=== PATIENT | male | born 1970 | race Caucasian/White ===

== ENCOUNTER 2021-12-30 13:08 | Emergency (ER) | payer OTHER, SELFPAY ==
[2021-12-30 13:09] VITALS: BP 121/77; PULSE 71; RESP 16; TEMP 36.4; O2SAT 100; BMI 25.0
[2021-12-30 13:11] VITALS: BP 121/77; PULSE 71; RESP 16; TEMP 36.4; O2SAT 100
--- NOTE | 2021-12-30 13:24 | CT_ITS ---
STUDY: CT SCAN UPPER EXTREMITY RIGHT wrist. REASON FOR EXAM: Male, 51 years old. Right wrist abscess RADIATION DOSAGE (If Supplied By Facility): CTDIvol = ( 24.58 ) mGy, DLP = ( 665.09 ) mGycm. Individualized dose optimization techniques were used for this CT.? TECHNIQUE: Multiple axial tomographic images of the wrist were obtained following 100 mL of ISOVUE 300 IV injection. Coronal and sagittal reconstruction was obtained as well. COMPARISON: None. FINDINGS: Diffuse subcutaneous edema with diffuse overlying skin thickening involving the region of the distal and mid forearm extending into the wrist joint. This is worse on the ventral radial aspect of the joint. There is a focal area of induration suggestive of a phlegmon measuring 1.9 cm x 1.4 cm along the radial aspect of the wrist joint. No abscess is seen at this time. No bony deformity or abnormality is seen. CT/Extremity Upper WITH Contrast IMPRESSION: Diffuse subcutaneous edematous changes with skin thickening involving the mid and distal forearm extending into the wrist joint. This is worse along the medial ventral aspect of the wrist joint with focal phlegmon. No evidence of abscess formation at this time. Electronically Signed: Julio Cesar Mcgarry MD at 14:21 EDT ,
--- NOTE | 2021-12-30 13:26 | EX.ED.DYSGE1 ---
HPI History of Present Illness Chief Complaint: Wound Informant: patient Onset/Context/Timing Onset: Days (6 days) Context: Gradual Onset Current Severity: Moderate Maximum Severity: Moderate Narrative Narrative: Patient presents secondary to abscess on the right wrist. He states he noted what he thought was poison glenny on his right wrist 6 days ago. He scratched the area open. He was seen at urgent care 2 days ago. He was diagnosed with cellulitis/abscess. It was not I&D at that time but he was given an IM injection of ceftriaxone and started on p.o. Bactrim. He went back today for a wound check. The physician highwall drill operator at the clinic today attempted to perform an I&D but did not get much fluid out. She voiced concern about it being close to the radial artery and did not want to cause further damage to send him to the emergency room. He denies having fever or chills. He is right-hand dominant. PFSH PFSH Medical History no medical history no medical history Home Medications azithromycin 250 mg tablet See Rx Instructions PO .COMPLEX #6 tabs 04/25/19 [Rx Last Taken Unknown] benzonatate 100 mg capsule 200 mg PO TID PRN cough #30 caps 04/25/19 [Rx Last Taken Unknown] cephalexin 500 mg capsule 500 mg PO Q6 #40 caps 12/30/21 [Rx Last Taken Unknown] Allergy/AdvReac Type Severity Reaction Status Date / Time No Known Allergies Allergy Unverified 04/29/19 13:52 Social History Smoking Status: Never smoker alcohol intake: current Alcohol type: beer ROS ROS ED Constitutional Constitutional ED: Denies chills or fever(s) Eyes Eyes: Denies change in vision or discharge from eye(s) ENT ENT ED: Denies discharge from eye(s), rhinorrhea or sore throat Cardiovascular Cardiovascular: Denies chest pain or palpitations Respiratory/Chest Respiratory/Chest: Denies cough or dyspnea Gastrointestinal Gastrointestinal: Denies abdominal pain, diarrhea, nausea or vomiting Genitourinary Genitourinary ED: Denies difficulty urinating or dysuria Musculoskeletal Musculoskeletal: Denies back pain or extremity pain Integumentary Reports abscess and other Details: Right hand edema ; Denies Abrasions or rash Neurologic Neurologic: Denies headache(s) or weakness Psychiatric Psychiatric: Denies anxiety or depression Allergic/Immunologic Allergic/Immunologic ED: Denies lip swelling or urticaria EXAM Physical Exam Narrative Exam Narrative: Patient sitting up in bed no acute distress. He is nontoxic-appearing. He denies pain. Const Vital Signs: 12/30/21 13:09 12/30/21 13:11 Temperature 97.6 F L 97.6 F L Temperature Source Temporal Temporal Pulse Rate 71 71 Respiratory Rate 16 16 Blood Pressure 121/77 H 121/77 H Blood Pressure Mean 91 91 Pulse Ox 100 100 Oxygen Delivery Method Room Air Room Air Positive well nourished and well developed General Appearance ED: well developed HEENT Reports moist mucous membranes Eyes PERRL Neck no lymphadenopathy Chest Wall inspection of chest normal and palpation of chest normal Resp normal respiratory effort and clear to auscultation bilaterally Cardio regular rate and regular rhythm GI normal to inspection, nondistended, normoactive bowel sounds and non-tender Palpation: soft Extremity Extremity Narrative: Swollen erythematous area to the volar lateral area of the right wrist. No fluctuance noted at this time. Mild hand edema noted. Good range of motion of all digits. Neuro oriented x3 and no sensory deficits noted Motor Exam: strength 5/5 throughout MDM MDM MDM Narrative Medical decision making narrative: Lab work obtained along with blood cultures. CT scan of the wrist obtained. Lab Data Attestation: I reviewed the patient's lab results. Labs: Laboratory Results - last 24 hr 12/30/21 12/30/21 13:40 13:40 WBC 8.5 RBC 4.41 L Hgb 13.9 Hct 41.4 MCV 93.9 MCH 31.5 MCHC 33.6 RDW Std Deviation 43.1 RDW Coeff of Little 12.4 Plt Count 210 MPV 9.2 Immature Gran % (Auto) 0.100 Neut % (Auto) 70.7 H Lymph % (Auto) 19.1 [place] % (Auto) 7.2 Eos % (Auto) 2.7 Baso % (Auto) 0.2 Absolute Neuts (auto) 6.0 Absolute Lymphs (auto) 1.61 Nucleated RBC % 0 Sodium 140 Potassium 4.0 Chloride 105 Carbon Dioxide 28.0 Anion Gap 7 BUN 18 Creatinine 1.11 Estim Creat Clear Calc 86.42 Est GFR (MDRD) Af Amer 90 Est GFR (MDRD) Non-Af 74 BUN/Creatinine Ratio 16.2 Glucose 94 Calcium 8.7 Radiography Diagnostic Testing: Clinical Impression(s) from Imaging Studies Upper Extremity CT 12/30/21 13:24 IMPRESSION: Diffuse subcutaneous edematous changes with skin thickening involving the mid and distal forearm extending into the wrist joint. This is worse along the medial ventral aspect of the wrist joint with focal phlegmon. No evidence of abscess formation at this time. Electronically Signed: Julio Cesar Mcgarry MD at 14:21 EDT , Treatment and Re-Evaluation Narrative: Lab work reveals normal white count with no left shift. Chemistry studies unremarkable. CT scan reveals subcu edematous changes with skin thickening but no evidence of a abscess. At this time patient has been on p.o. Bactrim at home. I will add Keflex. Wound to be cleansed and dressed. We discussed appropriate elevation of the hand to help prevent swelling. Return instructions provided. Discharge Plan Triage Chief Complaint: Wound ED Provider: Dina Andrade Dx/Rx/DC Orders Clinical Impression: Cellulitis Instructions: ED Cellulitis Prescriptions: New cephalexin 500 mg capsule 500 mg PO Q6 Qty: 40 0RF No Action azithromycin 250 mg tablet See Rx Instructions PO .COMPLEX Qty: 6 0RF Rx Instructions: take 500 mg today (day 1), then 250 mg for 4 days (days 2-5) PO benzonatate 100 mg capsule 200 mg PO TID PRN (Reason: cough) Qty: 30 0RF Primary Care Provider: Lincoln Lewis Referrals: Lincoln Lewis MD [Primary Care Provider] - 1 Week Disposition Disposition: Home, Self Care
[2021-12-30] MEDS: 0.9% Normal Saline 1,000 ML 150 ML IV (13:46)
[2021-12-30 14:01] LABS: Absolute Lymphocyte Count 1.61 X10^3/uL (0.83-4.51); Basophil# 0.02 X10^3/uL; Basophil% 0.2 % (0-1); Eosinophil# 0.23 X10^3/uL; Eosinophils% 2.7 % (0-5); Hematocrit 41.4 % (40-54); Hemoglobin 13.9 g/dL (13.0-16.5); Lymphocyte # 1.61 X10^3/ul (0.83-4.51); Lymphocyte % 19.1 % (19-41); Mean Corp Hgb Conc 33.6 g/dL (32-36); Mean Corpuscular Hgb 31.5 pg (27.0-32.0); Mean Corpuscular Volume 93.9 fL (80-94); Mean Platelet Vol. 9.2 fl (6.2-12.0); Monocyte# 0.61 X10^3/uL; Monocyte% 7.2 % (0-10); NRBC Flagged by Analyzer 0 % (0-5); Neutrophil # 5.97 X10^3/uL (2.7-7.7); Neutrophil % 70.7 % (47-70); Platelet Count 210 K/mm3 (150-450); RBC Distribution Width CV 12.4 % (11.6-14.6); RBC Distribution Width SD 43.1 fl (35.1-43.9); Red Blood Count 4.41 M/mm3 (4.6-6.2); White Blood Count 8.5 K/mm3 (4.4-11.0)
[2021-12-30 14:02] LABS: Anion Gap 7 (5-15); BUN 18 mg/dL (7-18); BUN/Creat Ratio 16.2 RATIO (10-20); Calcium,Total 8.7 mg/dL (8.5-10.1); Chloride 105 mmol/L (98-107); Creatinine, Serum 1.11 mg/dL (0.70-1.30); EST Glomerular Filtration Rate 74 mL/min (>60); Est Glom Filt Rate - Afr Amer 90 mL/min (>60); Estimated Creatinine Clearance 86.42 ml/min; Glucose 94 mg/dL (74-106); Sodium Level 140 mmol/L (136-145)
== END 2021-12-30 14:58 | disposition home or self-care (01) ==
PROVIDERS: Emergency Provider Emergency Medicine; PCP Family Medicine; Visit Provider Emergency Medicine
DX: L03.113 Cellulitis of right upper limb (principal)
CPT/HCPCS: 36415; 73201; 80048; 85025; 87040; 99283; J7030; Q9967; A4216

== ENCOUNTER 2021-12-31 10:37 | Emergency (ER) | payer OTHER, SELFPAY ==
[2021-12-31 10:38] VITALS: BP 135/93; PULSE 78; RESP 16; TEMP 36.4; O2SAT 100; BMI 25.0
--- NOTE | 2021-12-31 11:05 | EX.ED.DYSGE1 ---
HPI <SEN Serrato - Last Filed: 12/31/21 14:52> History of Present Illness Chief Complaint: Cellulitis Narrative Narrative: Patient has had cellulitis of his right wrist x1 week. Urgent care done I&D and then he was seen in the ED yesterday with normal labs and CT showing cellulitis but no abscess. He had been on Bactrim and last night they added Keflex every 6 hours. Today he woke up and his left knee was red and warm similar to his wrist. He states he has full range of motion and it itches but is not painful. No fever chills nausea or vomiting. He has no history of diabetes or immunocompromised. PFSH <SEN Serarto Last Filed: 12/31/21 14:52> [facility] Home Medications cephalexin 500 mg capsule 500 mg PO Q6 #40 caps 12/30/21 [Rx Last Taken Unknown] prednisone 10 mg tablet 10 mg PO DAILY #65 TABLETS 12/31/21 [Rx Last Taken Unknown] sulfamethoxazole 800 mg-trimethoprim 160 mg tablet 1 tab PO BID 12/31/21 [History Last Taken Unknown] Allergy/AdvReac Type Severity Reaction Status Date / Time No Known Allergies Allergy Unverified 12/31/21 10:39 Social History Smoking Status: Never smoker alcohol intake: current Alcohol type: beer ROS <SEN Serrato - Last Filed: 12/31/21 14:52> ROS ED ROS Narrative Constitutional: Negative for fever, chills, malaise. Eyes: Negative for visual change. ENT: Negative for sore throat, ear pain, rhinorrhea. CVS: Negative for palpitations, chest pain, syncope. Respiratory: Negative for shortness of breath, cough, orthopnea. GI: Negative for abdominal pain, nausea, vomiting, diarrhea, constipation, melena, hematochezia. : Negative for dysuria, hematuria or frequency. Neuro: Negative for headache, motor/sensory dysfunction. Skin: Positive for rash. Musc: Negative for joint pain, swelling, trauma. Heme: Negative for easy bruising, bleeding, lymphadenopathy. EXAM <SEN Serrato Last Filed: 12/31/21 14:52> Physical Exam Narrative Exam Narrative: CONST: Patient sitting in no acute distress. EYES: Normal inspection. NECK: Normal inspection. RESP: No respiratory distress, CTAB. CVS: Regular rate and rhythm, no murmur, no gallop. SKIN: 15x12 cm area of erythema over left anterior knee with small scattered vesicles. No significant warmth, no lymphangitic streaking, no fluctuance or crepitus. EXTREMITIES: No swelling of lower extremities, full range of motion of left knee without pain, 2+ PT pulses. NEURO: Oriented x4. PSYCH: Normal affect. Const Vital Signs: 12/31/21 10:38 Temperature 97.5 F L Temperature Source Temporal Pulse Rate 78 Respiratory Rate 16 Blood Pressure 135/93 H Blood Pressure Mean 107 Pulse Ox 100 Oxygen Delivery Method Room Air <Dr. Manish Maravilla DO - Last Filed: 12/31/21 15:28> Physical Exam Const Vital Signs: 12/31/21 10:38 Temperature 97.5 F L Temperature Source Temporal Pulse Rate 78 Respiratory Rate 16 Blood Pressure 135/93 H Blood Pressure Mean 107 Pulse Ox 100 Oxygen Delivery Method Room Air MDM <SEN Serrato - Last Filed: 12/31/21 14:52> [facility] Narrative Medical decision making narrative: Patient has been treated for cellulitis on his right wrist and today presents with new redness of his left knee. He is on antibiotics. He appears well nontoxic. Vital signs within normal limits. There is an area of erythema over the left patella and there are scattered vesicles to help. Is not warm or tender. He has full range of motion without pain. Distal pulses intact. The right wrist has a similar area except its more focally swollen from the I&D that urgent care did. With the vesicles it looks more like a plant contact dermatitis plan a cellulitis. Repeat labs today show normal white count. 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 I do not think it cellulitis on the knee. He was given a 3-week prednisone taper and was discharged in stable condition. Diagnosis 1. Plant contact dermatitis, right wrist and left knee Lab Data Labs: Laboratory Results - last 24 hr 12/31/21 12/31/21 11:20 11:20 WBC 6.2 RBC 4.23 L Hgb 13.3 Hct 40.2 MCV 95.0 H MCH 31.4 MCHC 33.1 RDW Std Deviation 43.4 RDW Coeff of Little 12.5 Plt Count 207 MPV 9.0 Immature Gran % (Auto) 0.200 Neut % (Auto) 64.9 Lymph % (Auto) 23.8 Price % (Auto) 7.1 Eos % (Auto) 3.7 Baso % (Auto) 0.3 Absolute Neuts (auto) 4.0 Absolute Lymphs (auto) 1.47 Nucleated RBC % 0 Sodium 138 Potassium 5.1 Chloride 106 Carbon Dioxide 30.0 Anion Gap 2 L BUN 16 Creatinine 1.23 Estim Creat Clear Calc 77.99 Est GFR (MDRD) Af Amer 80 Est GFR (MDRD) Non-Af 66 BUN/Creatinine Ratio 13.0 Glucose 91 Calcium 8.8 <Dr. Manish Maravilla, DO - Last Filed: 12/31/21 15:28> MDM MDM Narrative Medical decision making narrative: This patient was seen with a PA/SCHEDULING ASSISTANT Individually assessed they patient including history and physical. I have reviewed everything on the chart that is available and agree with the documentation provided by the PA/SCHEDULING ASSISTANT including discussion about the assessment, treatment plan, discussion, and return precautions. Patient has been treated for cellulitis on his right wrist and today presents with new redness of his left knee. He is on antibiotics. He appears well nontoxic. Vital signs within normal limits. There is an area of erythema over the left patella and there are scattered vesicles to help. Is not warm or tender. He has full range of motion without pain. Distal pulses intact. The right wrist has a similar area except its more focally swollen from the I&D that urgent care did. With the vesicles it looks more like a plant contact dermatitis plan a cellulitis. Repeat labs today show normal white count. 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 I do not think it cellulitis on the knee. He was given a 3-week prednisone taper and was discharged in stable condition. Diagnosis 1. Plant contact dermatitis, right wrist and left knee Lab Data Attestation: I reviewed the patient's lab results. Labs: Laboratory Results - last 24 hr 12/31/21 12/31/21 11:20 11:20 WBC 6.2 RBC 4.23 L Hgb 13.3 Hct 40.2 MCV 95.0 H MCH 31.4 MCHC 33.1 RDW Std Deviation 43.4 RDW Coeff of Little 12.5 Plt Count 207 MPV 9.0 Immature Gran % (Auto) 0.200 Neut % (Auto) 64.9 Lymph % (Auto) 23.8 Price % (Auto) 7.1 Eos % (Auto) 3.7 Baso % (Auto) 0.3 Absolute Neuts (auto) 4.0 Absolute Lymphs (auto) 1.47 Nucleated RBC % 0 Sodium 138 Potassium 5.1 Chloride 106 Carbon Dioxide 30.0 Anion Gap 2 L BUN 16 Creatinine 1.23 Estim Creat Clear Calc 77.99 Est GFR (MDRD) Af Amer 80 Est GFR (MDRD) Non-Af 66 BUN/Creatinine Ratio 13.0 Glucose 91 Calcium 8.8 Discharge Plan Triage Chief Complaint: Cellulitis ED Midlevel Provider: Uinque Soni ED Provider: Manish Maravilla Dx/Rx/DC Orders Clinical Impression: Allergy to poison marisol Instructions: ED Poison Marisol Rash Prescriptions: New prednisone 10 mg tablet 10 mg PO DAILY Qty: 65 0RF Rx Instructions: 6 po qd x 5 days, 4 po qd x 5 days, 2 po qd x 5 days, 1 po qd x 5 days No Action cephalexin 500 mg capsule 500 mg PO Q6 Qty: 40 0RF sulfamethoxazole-trimethoprim 800-160 mg tablet 1 tab PO BID Label Comments: TAKE 1 TABLET BY MOUTH TWICE DAILY for TEN days. Primary Care Provider: Lincoln Lewis Referrals: Lincoln Lewis MD [Primary Care Provider] - Activity Restrictions/Additional Instructions: There are tiny vesicles on red areas so this looks more consistent with poison marisol or plant dermatitis. I prescribed 3 weeks of steroids which should help. He can also take Benadryl if it itches. Try not to scratch it because it can become infected. Disposition Disposition: Home, Self Care Discharge Date/Time: 12/31/21 12:25
[2021-12-31 11:27] LABS: Absolute Lymphocyte Count 1.47 X10^3/uL (0.83-4.51); Basophil# 0.02 X10^3/uL; Basophil% 0.3 % (0-1); Eosinophil# 0.23 X10^3/uL; Eosinophils% 3.7 % (0-5); Hematocrit 40.2 % (40-54); Hemoglobin 13.3 g/dL (13.0-16.5); Lymphocyte # 1.47 X10^3/ul (0.83-4.51); Lymphocyte % 23.8 % (19-41); Mean Corp Hgb Conc 33.1 g/dL (32-36); Mean Corpuscular Hgb 31.4 pg (27.0-32.0); Monocyte# 0.44 X10^3/uL; Monocyte% 7.1 % (0-10); NRBC Flagged by Analyzer 0 % (0-5); Neutrophil % 64.9 % (47-70); Platelet Count 207 K/mm3 (150-450); RBC Distribution Width CV 12.5 % (11.6-14.6); RBC Distribution Width SD 43.4 fl (35.1-43.9); Red Blood Count 4.23 M/mm3 (4.6-6.2); White Blood Count 6.2 K/mm3 (4.4-11.0)
[2021-12-31 11:40] LABS: Anion Gap 2 (5-15); BUN 16 mg/dL (7-18); Calcium,Total 8.8 mg/dL (8.5-10.1); Chloride 106 mmol/L (98-107); Creatinine, Serum 1.23 mg/dL (0.70-1.30); EST Glomerular Filtration Rate 66 mL/min (>60); Est Glom Filt Rate - Afr Amer 80 mL/min (>60); Estimated Creatinine Clearance 77.99 ml/min; Glucose 91 mg/dL (74-106); Potassium 5.1 mmol/L (3.5-5.1); Sodium Level 138 mmol/L (136-145)
== END 2021-12-31 12:25 | disposition home or self-care (01) ==
LOC: ED 12:24
PROVIDERS: Physician Assistant; Emergency Provider Student in an Organized Health Care Education/Training Program; PCP Family Medicine; Visit Provider Student in an Organized Health Care Education/Training Program
DX: L23.7 Allergic contact dermatitis due to plants, except food (principal); L03.113 Cellulitis of right upper limb; Z79.899 Other long term (current) drug therapy
CPT/HCPCS: 36415; 80048; 85025; 99283; A4216

== ENCOUNTER 2022-09-06 06:22 | Day surgery (SDC) | payer OTHER, SELFPAY ==
[2022-09-06] VITALS (7 sets, daily range): BP systolic 104–125; BP diastolic 74–83; PULSE 70–80; RESP 14–16; TEMP 36.2–36.7; O2SAT 97–100; BMI 25.9
--- NOTE | 2022-09-06 06:25 | HP.PCM_ITS ---
HPI - General HPI Narrative CHARBEL ISAAC, is a 52 M who presents for screening colonoscopy. Patient never had previous colonoscopy. Patient denies any family history of colon cancer. Patient has bowel movements daily denies any blood. Patient denies any chronic abdominal pain/nausea/vomiting/reflux. [facility] Medical History (Updated 09/04/22 @ 09:15 by Elsie Chen) Heartburn Non-smoker Psoriasis Wears glasses Home Medications apremilast 30 mg tablet (Otezla) 30 mg PO 1200 07/25/22 [History Last Taken Unknown] Allergy/AdvReac Type Severity Reaction Status Date / Time No Known Allergies Allergy Verified 09/06/22 06:40 Surgical History (Updated 09/04/22 @ 09:15 by Elsie Chen) History of root canal procedure Social History (Updated 07/25/22 @ 11:31 by Bethany Navarrete) household members: spouse Smoking Status: Never smoker alcohol intake: current Alcohol type: beer Past Medical/Surgical History Planned Operation Planned Operative Procedure/s: CSCOPE OA Previous Hospitalizations/Surgeries HX Hospitalizations: No Any Problems With Anesthesia: No You/Your Family Experience Fever (Hyperthermia) With Anes: No Cholinesterase deficiency: No Cardiovascular Hx Hypertension: No Respiratory Hx Sleep Apnea: No Hx Respiratory Tract Infection/Cold (presently): No Do You Snore Loudly (louder than talking or can be heard): Yes Do You Often Feel Tired/ Fatigued/ Sleepy Dring Daytime?: No Has Anyone Observed You Stop Breathing During Sleep?: No Result (for STOP score): Negative Smoking Status: Never smoker Neurological Does patient have nerve stimulator: No Reproduction : No Allergies No Known Allergies Allergy (Verified 09/06/22 06:40) Discharge Is Pt Admitted From a Shelter, or a [place] [facility]: No After D/C, Where Do you Plan to Go: Return Home Physical Exam Const alert, oriented x3 and no apparent distress HEENT normocephalic and head/scalp atraumatic Resp normal respiratory effort Cardio regular rate GI soft to palpation and non-tender; Negative for non-distended Palpation: Negative for guarding Extremity no clubbing, cyanosis or edema Neuro CN's II-XII intact bilaterally Psych mental status grossly normal Assessment & Plan Assessment/Plan (1) Encounter for screening for malignant neoplasm of colon: Surgery Risks - Colonoscopy Risks Include but are not Limited To: Risks include but are not limited to: Bleeding, perforation requiring further surgery, inability to complete colonoscopy requiring barium enema.
[2022-09-06] MEDS: Lactated Ringers 1,000 ML 15 ML IV (06:52)
--- NOTE | 2022-09-06 07:30 | COLBX_PTH ---
PATIENT: CHARBEL ISAAC LOC: EN U#:[id number] AGE/SX: 52/M ROOM: RE09/06/[address]: Dr. Carolyn Edwards MD : 1970 BED: DIS: 09/06/2022 SPEC #: [id number] RECD: 09/06/22 13:41 STATUS: SAGE REFelix #: [id number] FARA: 09/06/22 07:[address]: Carolyn Edwards DEPT: SURGICAL PATHOLOGY RECD BY: Tanya Sanchez ENTERED: 09/06/22 13:42 SP TYPE: COLON BX OTHR DR: Dr. Wm Lewis MD Tissues: Sigmoid colon biopsy Procedures: Surgery Specimen Level IV HEADER OPERATION: Colonoscopy ? open access (MAC) and polypectomy PRE-OP DIAGNOSIS: Screening TISSUE SUBMITTED: Sigmoid colon polyp MICROSCOPIC DIAGNOSIS Sigmoid colon polyp, biopsy: Fragments of benign colonic mucosa. See comment. AM:alma rosa 09/07/2022 COMMENT Neither hyperplastic nor adenomatous change is identified. Clinical correlation is suggested. MICROSCOPIC DESCRIPTION Slides are reviewed. GROSS DESCRIPTION Received in fixative is one container labeled with the patient's name and designated sigmoid colon polyp. The specimen consists of one irregular fragment of light zepeda soft tissue that measures 0.4 x 0.4 x 0.1 cm. The specimen is totally submitted in one cassette. / SJ:alma rosa 09/06/2022 TC:5 CPT: 11333
--- NOTE | 2022-09-06 08:21 | OP.COLON_ITS ---
Patient Name: Zeferino Dubose Procedure Date: 09/06/2022 7:12 AM Date of : 1970 Age: 52 Procedure: Colonoscopy Indications: Screening for colorectal malignant neoplasm Providers: Carolyn Edwards MD Referring MD: Carolyn Edwards MD Medicines: Monitored Anesthesia Care Patient Profile: This is a 52 year old male. Last Colonoscopy: none. The patient's first colonoscopy is today. Complications: No immediate complications. Procedure: Pre-Anesthesia Assessment: - Prior to the procedure, a History and Physical was performed, and patient medications and allergies were reviewed. The patient's tolerance of previous anesthesia was also reviewed. The risks and benefits of the procedure and the sedation options and risks were discussed with the patient. All questions were answered, and informed consent was obtained. Prior Anticoagulants: The patient has taken no previous anticoagulant or antiplatelet agents. ASA Grade Assessment: Per anesthesia. After reviewing the risks and benefits, the patient was deemed in satisfactory condition to undergo the procedure. After I obtained informed consent, the scope was passed under direct vision. Throughout the procedure, the patient's blood pressure, pulse, and oxygen saturations were monitored continuously. The Colonoscope was introduced through the anus and advanced to the terminal ileum. The colonoscopy was performed without difficulty. The patient tolerated the procedure well. The quality of the bowel preparation was good. Scope In: 7:52:38 AM Scope Withdrawal Time 0 hours 12 minutes 53 seconds Scope Out: 8:11:44 AM Total Procedure Duration Time 0 hours 19 minutes 6 seconds Findings: The perianal and digital rectal examinations were normal. A less than 5 mm polyp was found in the sigmoid colon. The polyp was sessile. The polyp was removed with a cold biopsy forceps. Resection and retrieval were complete. Non-bleeding internal hemorrhoids were found. The hemorrhoids were Grade I (internal hemorrhoids that do not prolapse). The exam was otherwise without abnormality. Impression: - One less than 5 mm polyp in the sigmoid colon, removed with a cold biopsy forceps. Resected and retrieved. - Non-bleeding internal hemorrhoids. - The examination was otherwise normal. Recommendation: - Discharge patient to home. - Resume previous diet. - Continue present medications. - Await pathology results. - Repeat colonoscopy in 5-10 years for surveillance based on pathology results. Procedure Code(s): --- Professional --- 61312, PT, Colonoscopy, flexible; with biopsy, single or multiple Diagnosis Code(s): --- Professional --- Z12.11, Encounter for screening for malignant neoplasm of colon D12.5, Benign neoplasm of sigmoid colon CPT copyright 2017 [employer]. All rights reserved. The codes documented in this report are preliminary and upon quill worker review may be revised to meet current compliance requirements. MD Carolyn Holly MD 09/06/2022 8:21:05 AM This report has been signed electronically. Number of Addenda: 0 Note Initiated On: 09/06/2022 7:12 AM
--- NOTE | 2022-09-06 08:22 | OP.CCLET_ITS ---
09/06/2022 Lincoln Lewis Md Re : Colonoscopy procedure for Zeferino Dubose Dear Debbie This procedure was performed on Tuesday, September 06, 2022. My impressions and recommendations are as follows: Impressions : - One less than 5 mm polyp in the sigmoid colon, removed with a cold biopsy forceps. Resected and retrieved. - Non-bleeding internal hemorrhoids. - The examination was otherwise normal. Recommendations : - Discharge patient to home. - Resume previous diet. - Continue present medications. - Await pathology results. - Repeat colonoscopy in 5-10 years for surveillance based on pathology results. My findings are described in the full procedure note, which is enclosed. If I can be of further assistance, please feel free to contact me at Doctor phone number(s): , Work: . Sincerely, MD Carolyn Holly MD 09/06/2022 8:21:05 AM This report has been signed electronically.
== END 2022-09-06 09:08 | disposition home or self-care (01) ==
LOC: EN 06:23 → AC 06:24
PROVIDERS: PCP Family Medicine; Referring Provider Surgery; Visit Provider Surgery
PROC: 0DJD8ZZ Inspection of Lower Intestinal Tract, Via Natural or Artificial Opening Endoscopic (ICD-10-PCS; CPT 45378; principal; 2022-09-06 07:25)
DX: Z12.11 Encounter for screening for malignant neoplasm of colon (principal); K63.5 Polyp of colon; K64.0 First degree hemorrhoids; L40.9 Psoriasis, unspecified; Z79.899 Other long term (current) drug therapy
CPT/HCPCS: 45380; 88305; J7120; J2405

== ENCOUNTER → 2024-04-11 | Outpatient (CLI) | payer OTHER, SELFPAY ==
--- OUTSIDE RECORDS SUMMARY | 2024-04-11 13:24 | XMS RPT_ITS | CCD ---
Author Organization [facility] Care Team Providers Care Eyelet Operator Name Role Phone Wm Keith MD Primary Care Provider Medications Current Medications Medication Drug Class(es) Dates Sig (Normalized) Sig (Original) apremilast 30 mg oral tablet (1 source) Start: 2024 OTEZLA 30 mg tablet 2024 Active predniSONE 10 mg oral tablet (1 source) Start: 03-05-2024 predniSONE (DELTASONE) 10 mg tablet Take 3 tabs daily for 3 days, then 2 tabs daily for 3 days, then 1 tab daily for 3 days with food. 18 tablet 03/05/2024 Active triamcinolone acetonide 1 mg/ml topical cream (1 source) Corticosteroid Start: 03-05-2024 End: 03-12-2024 triamcinolone acetonide (KENALOG) 0.1 % cream Apply 1 application to affected area two times a day for 7 days. Apply sparingly to area for rash/itching. 80 g 03/05/2024 03/12/2024 Active Problems Problem Classification Problem Date Documented Da te Episodic/Chronic Allergic reactions (1 source) Contact dermatitis; Translations: [Unspecified contact dermatitis, unspecified cause] 03-05-2024 Episodic Results Test Name Value Interpretation Reference Range Facil ity CNOVon 03-05-2024 CNOV Office Visit ([facility] ) TIANA DUBOSE ([id number]) 1970 M Date Time Provider Department 03/05/24 7:15 PM STU GREGORIO [facility] During your visit today, we recorded the following information about you: Temperature Pulse Respiration Blood pressure 97.5 degrees 74/minute 16/minute 122/80 Weight 84.2 kg Stu GregorioKRISTOPHER 03/05/2024 7:30 PM Signed Subjective HPI Nontoxic-appearing male presents urgent care chief plaint of poison glenny exposure. Patient states was clearing some brush when he came of poison glenny contact. History of poison glenny this is similar. Has not used any OTC medications recently. Did try IV dry. No pain. No recent medication changes antibiotic use. Overall feels well. Denies any fever body aches chills productive cough chest pain shortness of breath pleuritic pain hemoptysis nausea vomiting abdominal pain change in bowel or bladder habits. Past medical history prescription medication use and allergies reviewed. BP 122/80 Pulse 74 Temp 36.4 ?C (97.5 ?F) (Tympanic) Resp 16 Wt 84.2 kg (185 lb 10 oz) SpO2 98% .Patient presents with: poison glenny: X 2 weeks mostly on arms History reviewed. No pertinent past medical history. History reviewed. No pertinent surgical history. ALLERGIES Patient has no known allergies. MEDICATIONS OTEZLA 30 mg tablet History reviewed. No pertinent family history. Review of Systems Constitutional: Negative for chills, fever and malaise/fatigue. HENT: Negative for sore throat. Respiratory: Negative for shortness of breath. Gastrointestinal: Negative for abdominal pain, nausea and vomiting. Musculoskeletal: Negative for back pain, falls, joint pain, myalgias and neck pain. Skin: Positive for itching and rash. Neurological: Negative for dizziness, loss of consciousness, weakness and headaches. Objective Physical Exam Constitutional: General: He is not in acute distress. Appearance: He is not toxic-appearing. HENT: Head: Normocephalic. Nose: Nose normal. Mouth/Throat: Mouth: Mucous membranes are moist. Pharynx: Oropharynx is clear. No oropharyngeal exudate or posterior oropharyngeal erythema. Eyes: Pupils: Pupils are equal, round, and reactive to light. Cardiovascular: Rate and Rhythm: Normal rate. Pulmonary: Effort: Pulmonary effort is normal. No respiratory distress. Musculoskeletal: Cervical back: Normal range of motion. Lymphadenopathy: Cervical: No cervical adenopathy. Skin: General: Skin is warm and dry. Comments: Macular papular rash fluid-filled vesicles linear pattern noted highlighted area. Spares palms and hands soles of feet. No mucosal membrane involvement or desquamation of skin. Neurological: General: No focal deficit present. Mental Status: He is alert. ASSESSMENT/PLAN: 1. Contact dermatitis, unspecified contact dermatitis type, unspecified trigger - ICD9: 692.9, ICD10: L25.9 Diagnosed with contact dermatitis. First will use topical steroids. Application instructions discussed. If does not achieve treatment management may use oral prednisone. Risk and benefit of medications discussed. Patient was educated on supportive therapies. Patient will follow up with primary care provider as needed. Patient was instructed to immediately proceed to emergency room for any new, worsening, or symptoms lasting longer than anticipated. The patient's clinical presentation is otherwise unremarkable at this time. Based on exam and clinical finding, the patient is stable for discharge. Plan of care was discussed with patient. Patient verbalizes understanding and agrees to plan of care. This note was generated using Nafham software. It may contain errors in wording, punctuation, or spelling. Stu Gregorio APRN.[employer] Allergies As of Date: 03/05/2024 (No Known Allergies) Date Reviewed: 03/05/2024 Reviewed by: Stu Gregorio APRN.[employer] - Fully Assessed Reason for Visit: poison glenny [Other] Cmt: X 2 weeks mostly on arms Primary Visit Diagnosis:Contact dermatitis, unspecified contact dermatitis type, unspecified trigger [L25.9] Order(s):predniSONE (DELTASONE) 10 mg tabletTake 3 tabs daily for 3 days, then 2 tabs daily for 3 days, then 1 tab daily for 3 days with food.Disp: 18 tabletRfl: 0 triamcinolone acetonide (KENALOG) 0.1 % creamApply 1 application to affected area two times a day for 7 days. Apply sparingly to area for rash/itching.Disp: 80 gRfl: 0 Prescriptions as of 03/05/2024 - OTEZLA 30 mg tablet - predniSONE (DELTASONE) 10 mg tablet Take 3 tabs daily for 3 days, then 2 tabs daily for 3 days, then 1 tab daily for 3 days with food. - triamcinolone acetonide (KENALOG) 0.1 % cream Apply 1 application to affected area two times a day for 7 days. Apply sparingly to area for rash/itching. Problem List As Of Date: 03/05/2024 (None) Prescriptions ordered this (more content not included)... Normal [facility] Vital Signs Date Time Vital Sign Value Performing Clinician Faci lity 03-05-2024 19:13-0400 Body temperature 97.5 [degF] Stu Gregorio INDUSTRIAL PSYCHOLOGY PROFESSOR.[employer] Work Phone: [facility] 03-05-2024 19:13-0400 Body weight 84.2 kg Stu Gregorio INDUSTRIAL PSYCHOLOGY PROFESSOR.[employer] Work Phone: [facility] 03-05-2024 19:13-0400 Diastolic blood pressure 80 mm[Hg] Stu Gregorio INDUSTRIAL PSYCHOLOGY PROFESSOR.[employer] Work Phone: [facility] 03-05-2024 19:13-0400 Heart rate 74 /min Stu Gregorio INDUSTRIAL PSYCHOLOGY PROFESSOR.[employer] Work Phone: [facility] 03-05-2024 19:13-0400 Respiratory rate 16 /min Stu Gregorio INDUSTRIAL PSYCHOLOGY PROFESSOR.[employer] Work Phone: [facility] 03-05-2024 19:13-0400 SaO2% (BldA) [Mass fraction] 98 % Stu Gregorio INDUSTRIAL PSYCHOLOGY PROFESSOR.[employer] Work Phone: [facility] 03-05-2024 19:13-0400 Systolic blood pressure 122 mm[Hg] Stu Gregorio INDUSTRIAL PSYCHOLOGY PROFESSOR.[employer] Work Phone: [facility] Encounters Encounter Date Encounter Type Care Provider Facility Start: 03-05-2024 End: 03-05-2024 ambulatory WM KEITH Facility:[facility] Start: 03-05-2024 End: 03-05-2024 Office outpatient new 20 minutes Stu Gregorio INDUSTRIAL PSYCHOLOGY PROFESSOR.[employer] Work Phone: [facility] Comment on above: Contact dermatitis, unspecified contact dermatitis type, unspecified trigger (Primary Dx) Plan of Treatment Date Care Activity Detail Author Start: 08-13-2027 Urine microalbumin profile DTaP,Tdap,Td Vaccine (2 - Td or Tdap) [facility] Start: 02-17-2024 Covid-19 Vaccine ( season) Covid-19 Vaccine ( season) [facility] Start: 02-17-2024 Influenza vaccination Influenza Vacc ine (#1) [facility] Start: 2015 Diabetes Screening Diabetes Screenin g [facility] Start: 2015 Screening for malign ant neoplasm of colon [facility] Start: 2005 Lipid panel [facility] Start: 1989 Hepatitis B Vaccine (1 of 3 - 19+ 3-dose series) Hepatitis B Vaccine (1 of 3 - 19+ 3-dose series) [facility] Start: 1989 Shingrix Vaccine (1 of 2) Shingrix V accine (1 of 2) [facility] Start: 02-13-1988 Anxiety Screening Anxiety Screening [facility] Start: 02-13-1988 Depression Screening Depression Scre ening [facility] Start: 02-13-1988 Hepatitis C screening Hepatitis C Sc reening [facility] Start: 02-13-1988 HIV screening HIV Screening [facility] Start: 02-13-1976 Pneumococcal vaccination Pneum ococcal Vaccine (1 of 2 - PCV) [facility] Immunizations Immunization Date Immunization Notes Care Provider Marques doran 03-03-2023 influenza virus vaccine, unspecified formulation Stu Gregorio APRN.[employer] Work Phone: [facility] Payers Date Payer Category Payer Unknown [employer] [facility] CE PLAN [employer] [facility] GENERIC [id number] 2023-Present [phone] [address] [facility] [place] [address] PPO [id number] 2023 Unknown [id number] Social History Date Type Detail Facility [facility]: [facility] Start: 03-05-2024 Tobacco use and exposure Smoke less tobacco non-user [facility] Start: 03-05-2024 History of Social function [facility] Start: 03-05-2024 Tobacco use panel [facility] Start: 1970 Sex assigned at Not on file [facility] Progress note 03-05-2024 Note Date & Type Note Facility 03-05-2024 Note HNO ID: [id number] Author: STU GREGORIO APRN.SOUTH Service: ? Author Type: Nurse Practitioner Type: Progress Notes Filed: 03/05/2024 19:30 Note Text: Subjective HPI Nontoxic-appearing male presents urgent care chief plaint of poison glenny exposure. Patient states was clearing some brush when he came of poison glenny contact. History of poison glenny this is similar. Has not used any OTC medications recently. Did try IV dry. No pain. No recent medication changes antibiotic use. Overall feels well. Denies any fever body aches chills productive cough chest pain shortness of breath pleuritic pain hemoptysis nausea vomiting abdominal pain change in bowel or bladder habits. Past medical history prescription medication use and allergies reviewed. BP 122/80 Pulse 74 Temp 36.4 ?C (97.5 ?F) (Tympanic) Resp 16 Wt 84.2 kg (185 lb 10 oz) SpO2 98% .Patient presents with: poison glenny: X 2 weeks mostly on arms History reviewed. No pertinent past medical history. History reviewed. No pertinent surgical history. ALLERGIES Patient has no known allergies. MEDICATIONS OTEZLA 30 mg tablet History reviewed. No pertinent family history. Review of Systems Constitutional: Negative for chills, fever and malaise/fatigue. HENT: Negative for sore throat. Respiratory: Negative for shortness of breath. Gastrointestinal: Negative for abdominal pain, nausea and vomiting. Musculoskeletal: Negative for back pain, falls, joint pain, myalgias and neck pain. Skin: Positive for itching and rash. Neurological: Negative for dizziness, loss of consciousness, weakness and headaches. Objective Physical Exam Constitutional: General: He is not in acute distress. Appearance: He is not toxic-appearing. HENT: Head: Normocephalic. Nose: Nose normal. Mouth/Throat: Mouth: Mucous membranes are moist. Pharynx: Oropharynx is clear. No oropharyngeal exudate or posterior oropharyngeal erythema. Eyes: Pupils: Pupils are equal, round, and reactive to light. Cardiovascular: Rate and Rhythm: Normal rate. Pulmonary: Effort: Pulmonary effort is normal. No respiratory distress. Musculoskeletal: Cervical back: Normal range of motion. Lymphadenopathy: Cervical: No cervical adenopathy. Skin: General: Skin is warm and dry. Comments: Macular papular rash fluid-filled vesicles linear pattern noted highlighted area. Spares palms and hands soles of feet. No mucosal membrane involvement or desquamation of skin. Neurological: General: No focal deficit present. Mental Status: He is alert. ASSESSMENT/PLAN: 1. Contact dermatitis, unspecified contact dermatitis type, unspecified trigger - ICD9: 692.9, ICD10: L25.9 Diagnosed with contact dermatitis. First will use topical steroids. Application instructions discussed. If does not achieve treatment management may use oral prednisone. Risk and benefit of medications discussed. Patient was educated on supportive therapies. Patient will follow up with primary care provider as needed. Patient was instructed to immediately proceed to emergency room for any new, worsening, or symptoms lasting longer than anticipated. The patient's clinical presentation is otherwise unremarkable at this time. Based on exam and clinical finding, the patient is stable for discharge. Plan of care was discussed with patient. Patient verbalizes understanding and agrees to plan of care. This note was generated using Nafham software. It may contain errors in wording, punctuation, or spelling. Stu Gregorio APRN.[facility] History of Present illness Narrative 03-05-2024 Stu Gregorio APRN.[facility]TH - 03/05/2024 7:12 PM EDT Note Date & Type Note Facility 03-05-2024 History of Presen t illness Narrative Subjective HPI Nontoxic-appearing male presents urgent care chief plaint of poison glenny exposure. Patient states was clearing some brush when he came of poison glenny contact. History of poison glenny this is similar. Has not used any OTC medications recently. Did try IV dry. No pain. No recent medication changes antibiotic use. Overall feels well. Denies any fever body aches chills productive cough chest pain shortness of breath pleuritic pain hemoptysis nausea vomiting abdominal pain change in bowel or bladder habits. Past medical history prescription medication use and allergies reviewed. BP 122/80 Pulse 74 Temp 36.4 C (97.5 F) (Tympanic) Resp 16 Wt 84.2 kg (185 lb 10 oz) SpO2 98% .Patient presents with: poison glenny: X 2 weeks mostly on arms History reviewed. No pertinent past medical history. History reviewed. No pertinent surgical history. ALLERGIES Patient has no known allergies. MEDICATIONS OTEZLA 30 mg tablet History reviewed. No pertinent family history. Review of Systems Constitutional: Negative for chills, fever and malaise/fatigue. HENT: Negative for sore throat. Respiratory: Negative for shortness of breath. Gastrointestinal: Negative for abdominal pain, nausea and vomiting. Musculoskeletal: Negative for back pain, falls, joint pain, myalgias and neck pain. Skin: Positive for itching and rash. Neurological: Negative for dizziness, loss of consciousness, weakness and headaches. Objective Physical Exam Constitutional: General: He is not in acute distress. Appearance: He is not toxic-appearing. HENT: Head: Normocephalic. Nose: Nose normal. Mouth/Throat: Mouth: Mucous membranes are moist. Pharynx: Oropharynx is clear. No oropharyngeal exudate or posterior oropharyngeal erythema. Eyes: Pupils: Pupils are equal, round, and reactive to light. Cardiovascular: Rate and Rhythm: Normal rate. Pulmonary: Effort: Pulmonary effort is normal. No respiratory distress. Musculoskeletal: Cervical back: Normal range of motion. Lymphadenopathy: Cervical: No cervical adenopathy. Skin: General: Skin is warm and dry. Comments: Macular papular rash fluid-filled vesicles linear pattern noted highlighted area. Spares palms and hands soles of feet. No mucosal membrane involvement or desquamation of skin. Neurological: General: No focal deficit present. Mental Status: He is alert. ASSESSMENT/PLAN: 1. Contact dermatitis, unspecified contact dermatitis type, unspecified trigger - ICD9: 692.9, ICD10: L25.9 Diagnosed with contact dermatitis. First will use topical steroids. Application instructions discussed. If does not achieve treatment management may use oral prednisone. Risk and benefit of medications discussed. Patient was educated on supportive therapies. Patient will follow up with primary care provider as needed. Patient was instructed to immediately proceed to emergency room for any new, worsening, or symptoms lasting longer than anticipated. The patient's clinical presentation is otherwise unremarkable at this time. Based on exam and clinical finding, the patient is stable for discharge. Plan of care was discussed with patient. Patient verbalizes understanding and agrees to plan of care. This note was generated using Nafham software. It may contain errors in wording, punctuation, or spelling. Stu Gregorio APRN.[facility] documented in this encounter [facility] Evaluation note Note Date & Type Note Facility Evaluation note Diagnosis Contact dermatitis, unspecified contact dermatitis type, unspecified trigger- Primary documented in this encounter [facility] Summary Purpose Family History No Family History Records Found Advance Directives No Advanced Directives Records Found Additional Source Comments Source Comments (unrecognize d section and content) In the event this informatio n is protected by the Federal Confidentiality of Alcohol and Drug Abuse Patient Records regulations: The Federal rules restrict any use of the information to criminally investigate or prosecute any alcohol or drug abuse patient.[facility] Reason for Visit (unrecogniz ed section and content) Reason Comments poison glenny X 2 weeks mostly on arms Care Teams (unrecognized sec tion and content) Eyelet Operator Relationship Specialty Start Date End Date Wm Keith MD [address] [place] [address] PCP - General Family Medicine 03/05/24 (unrecognized sect ion and content) No Status Records Found INFORMATION SOURCE (unrecogn ized section and content) DATE CREATED AUTHOR 03/08/2024 [facility] FOR RECORDS PERTAINING TO PATIENTS WHO ARE OR HAVE BEEN ENROLLED IN A CHEMICAL DEPENDENCY/SUBSTANCEABUSE PROGRAM, SOME INFORMATION MAY BE OMITTED. This clinical summary was aggregated from multiple sources. Caution should be exercised in using it in the provision of clinical care. This summary normalizes information from multiple sources, and as a consequence, information in this document may materially change the coding, format and clinical context of patient data. In addition, data may be omitted in some cases. CLINICAL DECISIONS SHOULD BE BASED ON THE PRIMARY CLINICAL RECORDS. [facility]. provides no warranty or guarantee of the accuracy or completeness of information in this document.
[2024-04-11 15:03] LABS: Hemoglobin 13.9 g/dL (13.0-16.5); Mean Corp Hgb Conc 33.9 g/dL (32-36); Mean Corpuscular Hgb 31.7 pg (27.0-32.0); Mean Corpuscular Volume 93.4 fL (80-94); Mean Platelet Vol. 9.6 fl (6.2-12.0); Platelet Count 202 K/mm3 (150-450); RBC Distribution Width CV 12.1 % (11.6-14.6); RBC Distribution Width SD 41.8 fl (35.1-43.9); Red Blood Count 4.39 M/mm3 (4.6-6.2); White Blood Count 5.5 K/mm3 (4.4-11.0)
[2024-04-11 15:20] LABS: Vitamin D,25 Hydroxy 31.2 ng/mL
[2024-04-11 15:24] LABS: Anion Gap 2 (5-15); BUN 21 mg/dL (7-18); BUN/Creat Ratio 21.8 RATIO (10-20); Calcium,Total 8.8 mg/dL (8.5-10.1); Chloride 108 mmol/L (98-107); Cholesterol 162 mg/dL (200); Creatinine, Serum 0.96 mg/dL (0.70-1.30); EST Glomerular Filtration Rate 86 mL/min (>60); Est Glom Filt Rate - Afr Amer 104 mL/min (>60); Glucose 70 mg/dL (74-106); High Density Lipoprotein 64 mg/dL; PSA,Total - Annual Screen 1.17 ng/mL (0.00-4.00); Potassium 3.6 mmol/L (3.5-5.1); Sodium Level 141 mmol/L (136-145); Triglycerides 44 mg/dL; Very Low Density Lipoprotein 9 mg/dL (5-40)
== END | disposition home or self-care (01) ==
LOC: MTLAB 12:57
PROVIDERS: PCP Family Medicine; Referring Provider Family Medicine; Visit Provider Family Medicine
DX: R45.86 Emotional lability (principal); Z13.1 Encounter for screening for diabetes mellitus; Z13.220 Encounter for screening for lipoid disorders; Z12.5 Encounter for screening for malignant neoplasm of prostate
CPT/HCPCS: 36415; 80048; 80061; 82306; 84153; 84403; 84443; 85027; G0103

== ENCOUNTER → 2024-09-10 | Outpatient (CLI) | payer OTHER, SELFPAY ==
--- NOTE | 2024-09-10 11:19 | RAD_ITS ---
EXAM: X-ray abdominal including decubitus and/or erect CLINICAL HISTORY: Diarrhea, bloating COMPARISON: None available TECHNIQUE: 2 AP upright and 2 AP supine views to include the entire abdomen and pelvis, 4 total images FINDINGS: The lung bases appear clear. No free air identified. Gas and stool within the colon. No gaseous distention of bowel. Nonspecific bowel gas pattern with overall paucity of small bowel gas. No abnormal abdominal calcification or appearance of mass effect identified. Appearance of lower lumbar facet degenerative changes with a partially left sacralized lower lumbar segment noted. [employer] Decub and/or Erect IMPRESSION: No free air identified. Gas and stool within the colon. No gaseous distention of bowel. Nonspecific bowel gas pattern with overall paucity of small bowel gas. Reading Location: [id number]
[2024-09-10 15:57] LABS: Absolute Lymphocyte Count 1.52 X10^3/uL (0.83-4.51); Absolute Neutrophil Count 2.8 X10^3/uL (2.0-7.7); Basophil# 0.02 X10^3/uL; Basophil% 0.4 % (0-1); Eosinophil# 0.34 X10^3/uL; Eosinophils% 6.8 % (0-5); Hematocrit 42.4 % (40-54); Hemoglobin 14.2 g/dL (13.0-16.5); Lymphocyte # 1.52 X10^3/ul (0.83-4.51); Lymphocyte % 30.2 % (19-41); Mean Corp Hgb Conc 33.5 g/dL (32-36); Mean Corpuscular Hgb 31.1 pg (27.0-32.0); Mean Platelet Vol. 9.4 fl (6.2-12.0); Monocyte# 0.39 X10^3/uL; Monocyte% 7.8 % (0-10); NRBC Flagged by Analyzer 0 % (0-5); Neutrophil # 2.75 X10^3/uL (2.7-7.7); Neutrophil % 54.6 % (47-70); Platelet Count 234 K/mm3 (150-450); RBC Distribution Width CV 12.3 % (11.6-14.6); RBC Distribution Width SD 42.4 fl (35.1-43.9); Red Blood Count 4.56 M/mm3 (4.6-6.2)
[2024-09-10 16:43] LABS: ALB/GLOB Ratio 1.6 RATIO (0.9-2.4); AST(SGOT) 21 U/L (<=37); Alanine Aminotransfer ALT/SGPT 15 U/L (<=46); Albumin, Serum 4.3 g/dL (3.5-5.0); Alkaline Phosphatase 66 U/L (40-129); Anion Gap 9 (5-15); BUN 18 mg/dL (4-19); BUN/Creat Ratio 19.7 RATIO (10-20); Carbon Dioxide 27.6 mmol/L (21.0-32.0); Chloride 103 mmol/L (98-108); Creatinine, Serum 0.92 mg/dL (0.70-1.20); EST Glomerular Filtration Rate 99 (>60); Globulin 2.7 g/dL (2.2-4.2); Glucose 78 mg/dL (70-99); Potassium 4.3 mmol/L (3.3-5.1); Protein, Total 7.1 g/dL (5.9-8.4); Sodium Level 140 mmol/L (133-145); Total Bilirubin 0.58 mg/dL (0.00-1.30)
[2024-09-10 17:25] LABS: Erythrocyte Sedimentation Rate 2 mm/hr (0-20)
[2024-09-12 16:09] LABS: Deamidated Gliadin IgA 4 units (0-19); Deamidated Gliadin IgG 7 units (0-19); Endomysial Antibody IgA Negative (Negative); Immunoglobulin A 141 mg/dL (90-386); t-Transglutaminase IgA <2 U/mL (0-3)
[2024-09-22 11:08] LABS: Chocolate <0.10 kU/L (Class 0); Codfish <0.10 kU/L (Class 0); Corn <0.10 kU/L (Class 0); Egg, Whole <0.10 kU/L (Class 0); Milk (Cow) 0.68 kU/L (Class II); Mussels <0.10 kU/L (Class 0); Peanut <0.10 kU/L (Class 0); Pork <0.10 kU/L (Class 0); Salmon <0.10 kU/L (Class 0); Shrimp 0.31 kU/L (Class 0/I); Soybean <0.10 kU/L (Class 0); Tuna <0.10 kU/L (Class 0); Wheat <0.10 kU/L (Class 0)
== END | disposition home or self-care (01) ==
LOC: MTLAB 11:19
PROVIDERS: PCP Family Medicine; Referring Provider Family Medicine; Visit Provider Family Medicine
DX: R14.0 Abdominal distension (gaseous) (principal); R19.7 Diarrhea, unspecified
CPT/HCPCS: 36415; 74019; 80053; 82784; 83516; 84443; 85025; 85652; 86003; 86005; 86255